=== PATIENT | female | born 1930 | race Native Hawaiian/Other Pacific Islander ===

== ENCOUNTER 2016-06-29 12:46 | Outpatient (CLI) | payer OTHER ==
[~2016-06-29 12:46] MED LIST: ALEN70TA19 PO; DEXTLIQ63 PO; FISH OIL1 C10 PO; LEVO0.0529 PO; MULTI VITAMIN D1 TAB PO; SIMV20TA2 PO
[2016-06-29 13:18] LABS: PLATELET COUNT 296 K/uL (152-353)
== END 2016-06-29 19:50 | disposition home or self-care (01) ==
LOC: LAB 12:46
PROVIDERS: Nurse Practitioner Family
DX: E03.8 Other specified hypothyroidism (principal); I48.92 Unspecified atrial flutter; E78.00 Pure hypercholesterolemia, unspecified; J44.9 Chronic obstructive pulmonary disease, unspecified; Z79.899 Other long term (current) drug therapy; Z51.81 Encounter for therapeutic drug level monitoring
CPT/HCPCS: 80053; 80061; 83036; 84439; 84443; 85027

== ENCOUNTER 2016-09-05 08:22 | Outpatient (CLI) | payer OTHER ==
[~2016-09-05] VITALS: Ht 30.5 cm; Wt 0.5 kg
== END 2016-09-05 19:09 | disposition home or self-care (01) ==
LOC: NM 08:22
DX: R94.31 Abnormal electrocardiogram [ECG] [EKG] (principal); R06.02 Shortness of breath; R00.2 Palpitations
CPT/HCPCS: 93306; A9500; J2785

== ENCOUNTER 2017-03-12 14:30 | Outpatient (CLI) | payer OTHER ==
[2017-03-12 15:44] LABS: PLATELET COUNT 240 K/uL (152-353)
== END 2017-03-12 19:23 | disposition home or self-care (01) ==
LOC: LAB 14:30
PROVIDERS: Nurse Practitioner Family
DX: E03.8 Other specified hypothyroidism (principal); M81.0 Age-related osteoporosis without current pathological fracture; I48.92 Unspecified atrial flutter; J44.9 Chronic obstructive pulmonary disease, unspecified; Z79.899 Other long term (current) drug therapy; Z51.81 Encounter for therapeutic drug level monitoring; E78.00 Pure hypercholesterolemia, unspecified; I10 Essential (primary) hypertension
CPT/HCPCS: 80053; 80061; 83036; 84436; 84443; 85027

== ENCOUNTER 2017-04-07 14:18 | Emergency (ER) | payer OTHER ==
[~2017-04-07] VITALS: Ht 165.1 cm; Wt 678.1 kg
[2017-04-07 14:40] VITALS: TEMP 97.4
[2017-04-07] MEDS ORDERED: ASA LOW DOSE81 MG PO (14:55)
[2017-04-07] MEDS ORDERED: FISH OIL1 C10 PO (14:56)
[2017-04-07 15:36] LABS: PLATELET COUNT 302 K/uL (152-353)
[2017-04-07 16:54] VITALS: BP 135/74
[2017-04-08] MEDS ORDERED: TESSALON PER100 MG OR (02:21)
[2017-04-08] MEDS ORDERED: DOCU100C10 PO (02:22)
[2017-04-08] MEDS ORDERED: ALEVE220 MG PO (02:24)
== END 2017-04-07 16:54 | disposition home or self-care (01) ==
LOC: ED 14:18
DX: J02.0 Streptococcal pharyngitis (principal); I50.9 Heart failure, unspecified
CPT/HCPCS: 36415; 80053; 83880; 84443; 85027; 87804; 87880; 99283

== ENCOUNTER 2017-04-07 22:45 | Inpatient (IN) | payer OTHER ==
[~2017-04-07] VITALS: Ht 167.6 cm; Wt 67.4 kg
[~2017-04-07 22:45] MED LIST changes: +ASA LOW DOSE81 MG PO
--- NOTE | 2017-04-07 23:08 | NUR ---
RECIEVED DIRECT ADMIT VIA TO SERVICES OF DR. DAN. ALERT AND ORIENTED X 3. PATIENT GIVEN EDUCATION REGARDING BED CONTROLS AND CALL LIGHT. INSTRUCTED TO KEEP BED IN LOW POSITION. FAMILY IS AT BEDSIDE.
[2017-04-08 00:21] VITALS: BP 133/72; TEMP 97.9; Ht 167.6 cm; Wt 67.4 kg
[2017-04-08] MEDS ORDERED: TESSALON PER100 MG OR (02:21)
[2017-04-08] MEDS ORDERED: DOCU100C10 PO (02:22)
[2017-04-08] MEDS ORDERED: ALEVE220 MG PO (02:24)
[2017-04-08 04:00] VITALS: BP 128/71; TEMP 98.1
[2017-04-08 05:47] LABS: POTASSIUM 3.8 mmol/L (3.6-5.2)
[2017-04-08 06:20] LABS: PLATELET COUNT 279 K/uL (152-353)
[2017-04-08 08:00] VITALS: BP 123/69; TEMP 98.5
--- NOTE | 2017-04-08 10:41 | NUR ---
GALINDO/ZEINAB AT
--- NOTE | 2017-04-08 11:50 | NUR ---
PT ASSISTED UP TO BSD BY DAUGHTER TO VOID, PT ABLE TO HOLD SPECIMEN CUP TO VOID. URINE COLLECTED AND TAKEN TO LAB. PT AND FAMILY INSTRUCTED TO CALL WITH ANY NEEDS OR CONCERNS.
[2017-04-08 12:00] VITALS: BP 126/60; TEMP 99.5
--- NOTE | 2017-04-08 12:50 | NUR ---
PT STATES THAT SHE DOES NOT WANT A SUAREZ AT THIS TIME. WILL RE-EVAL AT A LATER TIME. PT DID NOT FEEL DIZZY OR LIGHT HEADED WHEN GETTING UP TO BSD LAST TIME.
--- NOTE | 2017-04-08 14:17 | NUR ---
RESTING WITH EYES CLOSED. FAMILY AT
[2017-04-08 16:00] VITALS: BP 161/68; TEMP 98.8
--- NOTE | 2017-04-08 16:00 | NUR ---
LYING BP 138/73, P 82, RESP 19, SATS 98% SITTING BP 127/79, P 99, RESP 20 STANDING BP 115/59, P 97, RESP 20, 98%
--- NOTE | 2017-04-08 16:48 | NUR ---
PT RESTING WITH EYES CLOSED. FAMILY AT BS
[2017-04-08 20:00] VITALS: BP 121/66; TEMP 99.1
[2017-04-09] VITALS: BP 114/64; TEMP 98.9
[2017-04-09 04:00] VITALS: BP 107/62; TEMP 98.7
[2017-04-09 07:02] LABS: PLATELET COUNT 274 K/uL (152-353)
[2017-04-09 08:00] VITALS: BP 94/52; TEMP 98.4
--- NOTE | 2017-04-09 11:40 | NUR ---
BP OF 87/56 REPORTED TO ROBBIE HADDAD. ORDER TO HOLD LASIX IV AT THIS TIME AND EKG ORDERED. PT SITTING UP EATING LUNCH. DENIES SYMPTOMS AT THIS TIME
[2017-04-09 11:58] VITALS: BP 87/56; TEMP 99.1
--- NOTE | 2017-04-09 15:00 | NUR ---
PT UP TO CHAIR AT THIS TIME
[2017-04-09 16:00] VITALS: BP 98/51; TEMP 98.7
[2017-04-09 20:23] VITALS: BP 120/63; TEMP 99.1
[2017-04-10] VITALS: BP 122/57; TEMP 99
[2017-04-10 04:00] VITALS: BP 117/66; TEMP 98.6
[2017-04-10 05:24] LABS: PLATELET COUNT 249 K/uL (152-353)
[2017-04-10 08:00] VITALS: BP 118/56; TEMP 97.8
--- NOTE | 2017-04-10 11:29 | NUR ---
PT UP IN CHAIR AT THIS TIME. FAMILY AT BS
[2017-04-10 12:00] VITALS: BP 103/82; TEMP 99.5
[2017-04-10] MEDS ORDERED: FURO20TA67 PO (15:11)
--- NOTE | 2017-04-10 15:27 | NUR ---
DC INSTRUCTIONS GIVEN TO PT AND FAMILY. IV DC'D WITH CANNULA INTACT AND SITE CARE PROVIDED. PT LEFT VIA WC AT THIS TIME WITH TECH AND FAMILY.
== END 2017-04-10 15:28 | disposition home or self-care (01) | DRG 293 ==
LOC: MED/SURG 22:45
PROVIDERS: Specialist
DX: I50.31 Acute diastolic (congestive) heart failure (principal); L23.89 Allergic contact dermatitis due to other agents; T36.3X5A Adverse effect of macrolides, initial encounter; Y92.89 Other specified places as the place of occurrence of the external cause; D72.828 Other elevated white blood cell count; R06.09 Other forms of dyspnea; R55 Syncope and collapse; J02.0 Streptococcal pharyngitis; R05 Cough; I50.9 Heart failure, unspecified
CPT/HCPCS: 36415; 80053; 81000; 83735; 83880; 84443; 85027; 85379; 87804; 87880; 93005; 96372; 99283; A9540; A9567; J1650; J3490

== ENCOUNTER 2017-04-16 13:32 | Outpatient (CLI) | payer OTHER ==
[~2017-04-16 13:32] MED LIST changes: +ALEVE220 MG PO; +DOCU100C10 PO; +FURO20TA67 PO; +TESSALON PER100 MG OR
[2017-04-16 14:35] LABS: PLATELET COUNT 315 K/uL (152-353)
[2017-04-16 14:47] LABS: POTASSIUM 4.2 mmol/L (3.6-5.2)
== END 2017-04-16 22:02 | disposition home or self-care (01) ==
LOC: RAD 13:32
PROVIDERS: Nurse Practitioner Family
DX: R53.83 Other fatigue (principal); I50.9 Heart failure, unspecified; G89.29 Other chronic pain; M54.6 Pain in thoracic spine; R20.2 Paresthesia of skin
CPT/HCPCS: 36415; 80053; 82306; 82607; 83880; 85027

== ENCOUNTER 2017-04-17 11:50 | Outpatient (CLI) | payer OTHER | END 2017-04-17 12:50 | disposition home or self-care (01) | LOC: RESP 11:50 | DX: Z86.79 Personal history of other diseases of the circulatory system (principal) | CPT/HCPCS: 93306 ==

== ENCOUNTER 2017-07-23 15:32 | Outpatient (CLI) | payer OTHER ==
[2017-07-23 15:59] LABS: PLATELET COUNT 208 K/uL (152-353)
[2017-07-23 16:32] LABS: POTASSIUM 4.3 mmol/L (3.6-5.2)
== END 2017-07-23 22:52 | disposition home or self-care (01) ==
LOC: LAB 15:32
PROVIDERS: Nurse Practitioner Family
DX: E03.8 Other specified hypothyroidism (principal); J44.9 Chronic obstructive pulmonary disease, unspecified; M81.0 Age-related osteoporosis without current pathological fracture; Z79.899 Other long term (current) drug therapy; Z51.81 Encounter for therapeutic drug level monitoring; E78.00 Pure hypercholesterolemia, unspecified; I10 Essential (primary) hypertension
CPT/HCPCS: 80053; 80061; 83036; 84436; 84443; 85027

== ENCOUNTER 2018-07-23 11:47 | Outpatient (CLI) | payer OTHER ==
[2018-07-23 12:18] LABS: PLATELET COUNT 228 K/uL (152-353)
== END 2018-07-23 20:19 | disposition home or self-care (01) ==
LOC: LABW 11:47
PROVIDERS: Internal Medicine
DX: N18.3 Chronic kidney disease, stage 3 (moderate) (principal)
CPT/HCPCS: 36415; 80053; 81000; 82043; 82306; 82330; 82570; 83735; 83970; 84100; 84155; 85027

== ENCOUNTER 2018-09-24 09:09 | Emergency (ER) | payer OTHER ==
[~2018-09-24] VITALS: Ht 165.1 cm; Wt 60.8 kg
[2018-09-24 09:14] VITALS: TEMP 97.9
[2018-09-24] MEDS ORDERED: EQ LORATADINE10 MG PO (09:36)
[2018-09-24] MEDS ORDERED: LISI10TA11 PO (09:36)
[2018-09-24 09:58] LABS: PLATELET COUNT 225 K/uL (152-353)
[2018-09-24 10:09] LABS: POTASSIUM 4.2 mmol/L (3.6-5.2)
[2018-09-24 12:52] VITALS: BP 115/49
== END 2018-09-24 12:52 | disposition home or self-care (01) ==
LOC: ED 09:09
PROVIDERS: Family Medicine
DX: K52.9 Noninfective gastroenteritis and colitis, unspecified (principal); E86.0 Dehydration
CPT/HCPCS: 36415; 80053; 81000; 85027; 96360; 96375; 99284; J2405

== ENCOUNTER 2018-11-19 07:55 | Outpatient (CLI) | payer OTHER ==
[~2018-11-19 07:55] MED LIST changes: +EQ LORATADINE10 MG PO; +LISI10TA11 PO
[2018-11-19 08:33] LABS: PLATELET COUNT 231 K/uL (152-353)
[2018-11-19 08:41] LABS: POTASSIUM 4.9 mmol/L (3.6-5.2)
== END 2018-11-19 23:59 ==
LOC: LABW 07:55
PROVIDERS: Internal Medicine
DX: N18.4 Chronic kidney disease, stage 4 (severe) (principal); R82.998 Other abnormal findings in urine
CPT/HCPCS: 36415; 80053; 81000; 82330; 82570; 83735; 84100; 84155; 85027; 87088

== ENCOUNTER 2019-02-18 08:22 | Outpatient (CLI) | payer OTHER ==
[2019-02-18 09:18] LABS: POTASSIUM 4.6 mmol/L (3.6-5.2)
[2019-02-18 09:54] LABS: PLATELET COUNT 234 K/uL (152-353)
== END 2019-02-18 22:25 | disposition home or self-care (01) ==
LOC: LABW 08:22
PROVIDERS: Internal Medicine
DX: N18.4 Chronic kidney disease, stage 4 (severe) (principal); E03.8 Other specified hypothyroidism; D64.89 Other specified anemias; E53.8 Deficiency of other specified B group vitamins; E78.49 Other hyperlipidemia; I48.91 Unspecified atrial fibrillation; M81.0 Age-related osteoporosis without current pathological fracture; C44.621 Squamous cell carcinoma of skin of unspecified upper limb, including shoulder; C44.320 Squamous cell carcinoma of skin of unspecified parts of face; Z79.899 Other long term (current) drug therapy
CPT/HCPCS: 36415; 80053; 80061; 81000; 82330; 82570; 82607; 82728; 82746; 83036; 83540; 83550; 83735; 84100; 84155; 84439; 84443; 85027

== ENCOUNTER 2019-04-17 14:31 | Outpatient (CLI) | payer OTHER | END 2019-04-17 20:21 | disposition home or self-care (01) | LOC: RAD 14:31 | DX: R05 Cough (principal); R06.02 Shortness of breath ==

== ENCOUNTER 2019-06-17 12:58 | Outpatient (CLI) | payer OTHER ==
[2019-06-17 13:22] LABS: PLATELET COUNT 250 K/uL (152-353)
== END 2019-06-17 19:22 | disposition home or self-care (01) ==
LOC: LABW 12:58
PROVIDERS: Internal Medicine
DX: N18.4 Chronic kidney disease, stage 4 (severe) (principal); E03.8 Other specified hypothyroidism
CPT/HCPCS: 36415; 80053; 81000; 82330; 82570; 83735; 84100; 84155; 84439; 84443; 85027

== ENCOUNTER 2019-09-02 08:06 | Outpatient (CLI) | payer OTHER ==
[2019-09-02 09:32] LABS: POTASSIUM 4.5 mmol/L (3.6-5.2)
[2019-09-02 09:52] LABS: PLATELET COUNT 254 K/uL (152-353)
== END 2019-09-02 19:07 | disposition home or self-care (01) ==
LOC: LABW 08:06
PROVIDERS: Nurse Practitioner
DX: N28.89 Other specified disorders of kidney and ureter (principal); I48.91 Unspecified atrial fibrillation; D64.89 Other specified anemias; I50.9 Heart failure, unspecified; N18.4 Chronic kidney disease, stage 4 (severe); J44.9 Chronic obstructive pulmonary disease, unspecified; E78.49 Other hyperlipidemia; E03.8 Other specified hypothyroidism; M81.0 Age-related osteoporosis without current pathological fracture; I12.9 Hypertensive chronic kidney disease with stage 1 through stage 4 chronic kidney disease, or unspecified chronic kidney disease; Z79.899 Other long term (current) drug therapy
CPT/HCPCS: 36415; 80053; 80061; 81000; 82570; 83036; 83735; 84100; 84155; 84439; 84443; 84481; 85027

== ENCOUNTER 2020-01-19 09:44 | Outpatient (CLI) | payer OTHER | END 2020-01-19 22:28 | disposition home or self-care (01) | LOC: CT 09:44 | DX: R55 Syncope and collapse (principal); I10 Essential (primary) hypertension; E03.8 Other specified hypothyroidism; E78.49 Other hyperlipidemia; D64.89 Other specified anemias | CPT/HCPCS: 93005 ==

== ENCOUNTER 2020-02-09 08:40 | Outpatient (CLI) | payer OTHER ==
[2020-02-09 09:16] LABS: PLATELET COUNT 216 K/uL (152-353)
[2020-02-09 09:27] LABS: POTASSIUM 4.6 mmol/L (3.6-5.2)
== END 2020-02-09 19:05 | disposition home or self-care (01) ==
LOC: LABW 08:40
PROVIDERS: Internal Medicine
DX: N18.4 Chronic kidney disease, stage 4 (severe) (principal); E03.8 Other specified hypothyroidism
CPT/HCPCS: 36415; 80053; 81000; 82330; 82570; 83735; 84100; 84155; 84439; 84443; 85027

== ENCOUNTER 2020-02-10 09:40 | Outpatient (CLI) | payer OTHER | END 2020-02-10 19:03 | disposition home or self-care (01) | LOC: CT 09:40 | DX: R05 Cough (principal) ==

== ENCOUNTER 2020-05-28 08:39 | Outpatient (CLI) | payer OTHER ==
[2020-05-28 09:18] LABS: PLATELET COUNT 262 K/uL (152-353)
[2020-05-28 09:34] LABS: POTASSIUM 4.7 mmol/L (3.6-5.2)
== END 2020-05-28 20:52 | disposition home or self-care (01) ==
LOC: LABW 08:39
PROVIDERS: ATTEND Internal Medicine
DX: N18.4 Chronic kidney disease, stage 4 (severe) (principal); E03.8 Other specified hypothyroidism
CPT/HCPCS: 36415; 80053; 81000; 82330; 82570; 83735; 84100; 84155; 84439; 84443; 85027

== ENCOUNTER 2020-06-29 09:26 | Outpatient (CLI) | payer OTHER | END 2020-06-29 20:12 | disposition home or self-care (01) | LOC: LABW 09:26 | PROVIDERS: ATTEND Nurse Practitioner | DX: E03.8 Other specified hypothyroidism (principal) | CPT/HCPCS: 36415; 84439; 84443 ==

== ENCOUNTER 2020-07-14 09:28 | Outpatient (CLI) | payer OTHER | END 2020-07-14 21:31 | disposition home or self-care (01) | LOC: RESP 09:28 → LAB 09:28 → RESP 10:00 | PROVIDERS: ATTEND Internal Medicine Sleep Medicine | DX: J84.10 Pulmonary fibrosis, unspecified (principal) | CPT/HCPCS: 36415; 85652; 86038; 86200; 86235; 86430 ==

== ENCOUNTER 2020-08-11 10:50 | Emergency (ER) | payer OTHER ==
[~2020-08-11] VITALS: Ht 165.1 cm; Wt 60.8 kg
[2020-08-11 11:37] LABS: PLATELET COUNT 267 K/uL (152-353)
[2020-08-11 11:40] LABS: POTASSIUM 5.8 mmol/L (3.6-5.2)
[2020-08-11 12:14] LABS: PARTIAL THROMBOPLASTIN TIME 28.8 SECONDS (24.5-33.6)
[2020-08-11 13:45] VITALS: BP 127/56; TEMP 98
== END 2020-08-11 13:45 | disposition home or self-care (01) ==
LOC: ED 10:50
PROVIDERS: Family Medicine
DX: R31.9 Hematuria, unspecified (principal); N39.0 Urinary tract infection, site not specified
CPT/HCPCS: 36415; 80053; 81000; 85027; 85610; 85730; 96372; 99283; J0696

== ENCOUNTER 2020-10-07 08:37 | Outpatient (CLI) | payer OTHER ==
[2020-10-07 09:09] LABS: PLATELET COUNT 229 K/uL (152-353)
== END 2020-10-07 19:43 | disposition home or self-care (01) ==
LOC: LABW 08:37
PROVIDERS: ATTEND Nurse Practitioner
DX: N18.4 Chronic kidney disease, stage 4 (severe) (principal)
CPT/HCPCS: 36415; 80053; 81000; 82330; 82570; 83735; 84100; 84155; 85027